=== PATIENT | female | born 1945 | race Caucasian/White ===

== ENCOUNTER 2020-03-15 17:39 | Emergency (ER) | payer MEDICARE, BC, SELFPAY ==
[2020-03-15 17:59] VITALS: BP 146/73; PULSE 102; RESP 16; TEMP 36.9; O2SAT 97; BMI 25.7
--- NOTE | 2020-03-15 18:24 | XR_ITS ---
WS: [id number] PORTABLE CHEST HISTORY: fever COMPARISON: 07/10/2019 Trab[place]ulae elevated LEFT hemidiaphragm causing atelectasis at the LEFT lung base. No progression. RIG HT lung is clear. No pleural effusion or pneumothorax. Cardiac size: Cardiac silhouette is obscured by the elevated LEFT hemidiaphragm. Mediastinum/Aorta: Mild atherosclerosis aorta. No osseous abnormality seen. XR/XR chest 1V portable [id number] IMPRESSION: Stable chest. No acute cardiopulmonary disease.
[2020-03-15 18:44] LABS: Add Urine Microscopic? YES; Bilirubin Urine 1+ (NEGATIVE); Blood Urine Neg (Negative); Glucose Urine UA Norm (Normal); Ketones Urine Negative (Negative); Leukocyte Esterase Urine Negative (Negative); Nitrate Urine Negative (Negative); Protein Urine Neg (Negative); Urine Appearance SL Hazy (CLEAR); Urine Color Yellow (Yellow); Urobilinogen Urine Norm (Negative); pH Urine 5 (5-7)
[2020-03-15 18:48] LABS: Lactate (Lactic Acid level) 1.2 mmol/L (0.5-2.2)
[2020-03-15 18:49] LABS: Alanine Aminotransferase 20 U/L (0-33); Albumin Level 3.7 g/dL (3.5-5.2); Alkaline Phosphatase 94 IU/L (35-105); Anion Gap 18.3 (5-19); Aspartate Amino Transferase 27 U/L (0-32); Bacteria Urine 1+; Blood Urea Nitrogen 16 mg/dL (8-23); C Reactive Protein 49.1 mg/L (0.0-4.9); Calcium 9.3 mg/dL (8.5-10.5); Carbon Dioxide 23 mmol/L (22-29); Chloride 96 mmol/L (98-107); Creatine Phosphokinase 96 U/L (26-192); Globulin 2.8 g/dL (1.3-4.6); Glucose 123 mg/dL (65-115); Mucus Urine 1+; Osmolality Calculated 274 mOsm/kg (285-295); Potassium 4.3 mmol/L (3.5-5.1); Sodium 133 mmol/L (136-145); Total Bilirubin 0.4 mg/dL (0.15-1.2); Total Protein 6.5 g/dL (6.6-8.7); WBC Urine 0-4 /hpf (0-5)
[2020-03-15 18:50] LABS: Add Urine Culture? No; Squamous Epithelial Cell Urine 0-4 (0-5)
[2020-03-15 19:15] VITALS: BP 134/74; PULSE 103; RESP 16; O2SAT 97
[2020-03-15 19:17] LABS: Basophils % 0.9 %; Eosinophils # 0.3 10^3/uL (0.0-0.8); Eosinophils % 6.3 %; Hematocrit 34.2 % (37.0-47.0); Hemoglobin 11.2 g/dL (11.5-15.3); Lymphocytes # 0.6 10^3/uL (0.8-4.8); Lymphocytes % 12.3 %; Mean Corpuscular HGB Conc 32.7 g/dL (30.0-36.0); Mean Corpuscular Hemoglobin 31.5 pg (28.0-34.0); Mean Corpuscular Volume 96.3 fL (81-99); Mean Platelet Volume 10.2 fL (7.4-10.4); Monocytes # 0.4 10^3/uL (0.2-0.9); Monocytes % 8.1 %; Neutrophils # 3.2 10^3/uL (1.8-7.7); Nucleated Red Blood Cells % 0 %; Platelet Count 193 10^3/cmm (130-400); Red Blood Count 3.55 10^6/uL (4.1-5.3); Red Cell Distribution Width 12.7 % (12.1-15.1); White Blood Count 4.5 10^3/uL (4.0-10.0)
[2020-03-15] MEDS: sodium chloride 0.9% 1,000 ML 999 ML IV (19:20)
--- NOTE | 2020-03-15 20:07 | W.ED.FEMALGU ---
HPI - Female Genitourinary General: Chief complaint: Urogenital-Female Stated complaint: poss sepsis per pcp Time Seen by Provider: 03/15/20 18:07 History of Present Illness: HPI Narrative: 74-year-old female presenting with continued fever. She had been treated on Monday for a urinary tract infection by her doctor. She says that she had been having dysuria and frequency with some back pain and belly pain. Those symptoms are essentially resolved, but continues to have chills, a fluttery feeling in her chest, and joint aches and pains. MD elicited complaint: dysuria and UTI Onset (ago): day(s) Location of symptoms: low back Severity: moderate Female Urogenital Radiation: Non-Radiating Quality of pain: burning Consistency: intermittent Vaginal discharge: none Vaginal bleeding: none Urinary symptoms: Dysuria Relieving factors: urination Associated symptoms: Reports fevers/chills, nausea and weakness (Generalized); Deny short of breath, headache(s) or rash Review of Systems Const: Reports: fever(s) and chills Eyes: Denies: change in vision or blurry vision ENMT: Denies: swelling of lips/tongue, bleeding gums, change in hearing or sinus pain Card: Reports: swelling of feet/ankles; Denies: chest pain, irregular heart rhythm, dyspnea on exertion or orthopnea Resp: Denies: dyspnea, productive cough, non-productive cough or wheezing GI: Reports: nausea : Reports: dysuria and urinary frequency; Denies: urinary urgency or hematuria Musc: Denies: neck pain, back pain, joint redness or joint warmth Skin/Breast: Denies: rash, pruritus or erythema Neuro: Reports: dizziness; Denies: headache(s) or vertigo Psych: Denies: anxiety PFSH ED PFSH: Social History Smoking and tobacco status: never smoked Physical Exam Const: GENERAL APPEARANCE: well developed ORIENTATION/CONSCIOUSNESS: Yes oriented to person, Yes oriented to place and Yes oriented to time HENMT: COMMON NORMALS: normocephalic, external ears normal and Normal external nose present HEAD & SCALP: normocephalic; no scalp tenderness FACE & SINUS: normal facial exam NOSE: Normal external nose present and No nasal discharge present EXTERNAL EAR: Yes external ears normal MOUTH: tongue normal TEETH & GINGIVA: no abnormal tooth and associated gingiva Eye: COMMON NORMALS: Equal, round and reactive pupils present, EOMs intact bilaterally and conjunctivae normal EYELID: eyelids normal CONJUNCTIVA: Yes conjunctivae normal PUPIL: Yes Equal, round and reactive pupils present Neck/C-Spine: GENERAL: No tracheal deviation Chest: COMMONS NORMALS: normal inspection of the chest CHEST: No tenderness Resp: COMMON NORMALS: clear to auscultation bilaterally EFFORT & INSPECTION: No tachypneic, No respiratory distress, No retractions, No uses accessory muscles and No tracheal deviation AUSCULTATION: clear to auscultation bilaterally, no rhonchi, no wheezes and lung sounds not diminished Cardio: COMMON NORMALS: regular rate and regular rhythm RATE: regular rate RHYTHM: regular rhythm HEART SOUNDS: no murmurs PERIPHERAL PULSES: radial pulses present GI: INSPECTION: No abdominal distension AUSCULTATION: No Hyperactive bowel sounds present and No Hypoactive bowel sounds present PALPATION: No Guarding due to palpation present (GI) and No Rigid due to palpation PERCUSSION: no dullness to percussion and no tympanic to percussion Neuro: SENSORIUM/ORIENTATION: Yes oriented to person, Yes oriented to place and Yes oriented to time Psych: COMMON NORMALS: mental status grossly normal Skin: COMMON NORMALS: no rashes or lesions noted GENERAL SKIN EXAM: no rashes or lesions noted Course Vital Signs: Vital signs: Vital Signs Temperature 98.4 F 03/15/20 17:59 Pulse Rate 98 03/15/20 20:46 Respiratory Rate 18 03/15/20 20:46 Blood Pressure 103/69 03/15/20 20:46 Pulse Oximetry 99 03/15/20 20:46 MDM - Female [facility] Narrative: Medical decision making narrative: Patient presents with joint aches and pains, some swelling, and fever that continues despite several doses of antibiotics following treatment for a urinary tract infection. No diarrhea or vomiting. No belly pain. No cough. White blood cell count is 4.5. Hemoglobin is 11 2. Other laboratory is benign her urine appears to be clearing. Her chest x-ray is negative for infiltrate. She has no known exposure to coronavirus and does not have symptoms related to coronavirus Chronic her symptoms are mostly related to a partially treated/incomplete treatment of UTI. Going to give her 1 dose of Rocephin here, have her continue the Bactrim, and follow-up as an outpatient. She knows to return if she gets sicker. Lab Data: Labs: Lab Results 03/15/20 03/15/20 03/15/20 Range/Units 18:17 18:17 18:17 WBC (4.0-10.0) 10^3/ uL RBC (4.1-5.3) 10^6/u L Hgb (11.5-15.3) g/dL Hct (37.0-47.0) % MCV (81-99) fL MCH (28.0-34.0) pg MCHC (30.0-36.0) g/dL RDW (12.1-15.1) % Plt Count (130-400) 10^3/c mm MPV (7.4-10.4) fL Neut % (Auto) % Lymph % (Auto) % [place] % (Auto) % Eos % (Auto) % Baso % (Auto) % Neut # (Auto) (1.8-7.7) 10^3/u L Lymph # (Auto) (0.8-4.8) 10^3/u L [place] # (Auto) (0.2-0.9) 10^3/u L Eos # (Auto) (0.0-0.8) 10^3/u L Baso # (Auto) (0.0-0.1) 10^3/u L Nucleated RBC % (a uto) % Nucleated RBCs # /100WBC Sodium 133 L (136-145) mmol/L Potassium 4.3 (3.5-5.1) mmol/L Chloride 96 L (98-107) mmol/L Carbon Dioxide 23 (22-29) mmol/L Anion Gap 18.3 (5-19) BUN 16 (8-23) mg/dL Creatinine 0.8 (0.5-0.9) mg/dL Glucose 123 H (65-115) mg/dL Calculated Osmolal ity 274 L (285-295) mOsm/k g Lactate 1.2 (0.5-2.2) mmol/L Calcium 9.3 (8.5-10.5) mg/dL Total Bilirubin 0.4 (0.15-1.2) mg/dL AST 27 (0-32) U/L ALT 20 (0-33) U/L Alkaline Phosphata se 94 (35-105) IU/L Creatine Kinase 96 (26-192) U/L C-Reactive Protein 49.1 H (0.0-4.9) mg/L Total Protein 6.5 L (6.6-8.7) g/dL Albumin 3.7 (3.5-5.2) g/dL Globulin 2.8 (1.3-4.6) g/dL Urine Color Yellow (Yellow) Urine Appearance Sl hazy (CLEAR) Urine pH 5 (5-7) Ur Specific Gravit y 1.020 (1.005-1.030) Urine Protein Neg (Negative) Urine Glucose (UA) Norm (Normal) Urine Ketones Negative (Negative) Urine Blood Neg (Negative) Urine Nitrate Negative (Negative) Urine Bilirubin 1+ H (NEGATIVE) Urine Urobilinogen Norm (Negative) mg/dL Ur Leukocyte Alondra ase Negative (Negative) Urine RBC None (0-2) /hpf Urine WBC 0-4 H (0-5) /hpf Ur Squamous Epith Cells 0-4 H (0-5) Urine Bacteria 1+ H (NONE) Urine Mucus 1+ 06/21/20 Range/Units 19:10 WBC 4.5 (4.0-10.0) 10^3/ uL RBC 3.55 L (4.1-5.3) 10^6/u L Hgb 11.2 L (11.5-15.3) g/dL Hct 34.2 L (37.0-47.0) % MCV 96.3 (81-99) fL MCH 31.5 (28.0-34.0) pg MCHC 32.7 (30.0-36.0) g/dL RDW 12.7 (12.1-15.1) % Plt Count 193 (130-400) 10^3/c mm MPV 10.2 (7.4-10.4) fL Neut % (Auto) 72.0 % Lymph % (Auto) 12.3 % [place] % (Auto) 8.1 % Eos % (Auto) 6.3 % Baso % (Auto) 0.9 % Neut # (Auto) 3.2 (1.8-7.7) 10^3/u L Lymph # (Auto) 0.6 L (0.8-4.8) 10^3/u L [place] # (Auto) 0.4 (0.2-0.9) 10^3/u L Eos # (Auto) 0.3 (0.0-0.8) 10^3/u L Baso # (Auto) 0.0 (0.0-0.1) 10^3/u L Nucleated RBC % (a uto) 0 % Nucleated RBCs # 0.0 /100WBC Sodium (136-145) mmol/L Potassium (3.5-5.1) mmol/L Chloride (98-107) mmol/L Carbon Dioxide (22-29) mmol/L Anion Gap (5-19) BUN (8-23) mg/dL Creatinine (0.5-0.9) mg/dL Glucose (65-115) mg/dL Calculated Osmolal ity (285-295) mOsm/k g Lactate (0.5-2.2) mmol/L Calcium (8.5-10.5) mg/dL Total Bilirubin (0.15-1.2) mg/dL AST (0-32) U/L ALT (0-33) U/L Alkaline Phosphata se (35-105) IU/L Creatine Kinase (26-192) U/L C-Reactive Protein (0.0-4.9) mg/L Total Protein (6.6-8.7) g/dL Albumin (3.5-5.2) g/dL Globulin (1.3-4.6) g/dL Urine Color (Yellow) Urine Appearance (CLEAR) Urine pH (5-7) Ur Specific Gravit y (1.005-1.030) Urine Protein (Negative) Urine Glucose (UA) (Normal) Urine Ketones (Negative) Urine Blood (Negative) Urine Nitrate (Negative) Urine Bilirubin (NEGATIVE) Urine Urobilinogen (Negative) mg/dL Ur Leukocyte Alondra ase (Negative) Urine RBC (0-2) /hpf Urine WBC (0-5) /hpf Ur Squamous Epith Cells (0-5) Urine Bacteria (NONE) Urine Mucus Discharge Plan Discharge Patient Disposition: Home, Self-Care Clinical Impression: Urinary tract infection Qualifiers: Urinary tract infection type: acute cystitis Hematuria presence: without hematuria Qualified Code(s): N30.00 - Acute cystitis without hematuria Condition: Stable Prescriptions: No Action atorvastatin 40 mg tablet 40 mg PO DAILY RF: 0 sulfamethoxazole-trimethoprim 800-160 mg tablet 1 tab PO DAILY RF: 0 triamcinolone acetonide 0.1 % cream See Rx Instructions .ROUTE .COMPLEX RF: 0 Synthroid 25 mcg tablet 25 mcg PO DAILY RF: 0 esomeprazole magnesium 40 mg capsule,delayed release(DR/EC) 40 mg PO DAILY RF: 0 lisinopril-hydrochlorothiazide 20-25 mg tablet 1 tab PO DAILY RF: 0 labetalol 100 mg tablet 100 mg PO BID RF: 0 ProAir HFA 90 mcg/actuation HFA aerosol inhaler See Rx Instructions .ROUTE .COMPLEX RF: 0 Discharge Orders: Discharge Order (Routine); Ordered 03/15/20 Ordered By: Rafa Mayen Referrals: Mary Garcia MD [Primary Care Provider] - Drew Siegel DO [Staff Physician] - 1-3 days Discharge Diet: Advance as tolerated Discharge Activity: Increase activity as tolerated Patient Instructions: Urinary Tract Infection in Women (ED) Activity Restrictions/Additional Instructions: Return for any worsening symptoms despite treatment. Continue your Bactrim for your urinary tract infection. Return for continued fevers despite 3 more doses, cough, shortness of breath, diarrhea, other concerning symptoms. Discharge Date/Time: 03/15/20 20:47 Coding Level of Care Code ED Copper Tapper for Lidia Adams Exam Comprehensive
[2020-03-15] MEDS: ketorolac 30 mg/mL INJ IVP (20:13)
[2020-03-15 20:14] VITALS: BP 128/67; PULSE 108; RESP 15; O2SAT 98
[2020-03-15] MEDS: cefTRIAXone 1,000 MG in sodium chloride 0.9% (plus) 50 ML 100 MG IV (20:26)
[2020-03-15 20:46] VITALS: BP 103/69; PULSE 98; RESP 18; O2SAT 99
== END 2020-03-15 20:47 | disposition home or self-care (01) ==
PROVIDERS: Emergency Provider Emergency Medicine; PCP Family Medicine
DX: N30.00 Acute cystitis without hematuria (principal)
CPT/HCPCS: 12345; 36415; 71045; 80053; 81001; 82550; 83605; 85025; 86140; 87040; 96365; 96375; 99283; J0696; J1885; J7030

== ENCOUNTER 2021-05-26 10:04 | Outpatient (CLI) | payer MEDICARE, BC, SELFPAY ==
--- NOTE | 2021-05-26 10:11 | XR_ITS ---
WS: [id number] PROCEDURE: XR chest 2V* [id number] CLINICAL INFORMATION: ELEVATED HEMIDIAPHRAGM, COPD,GERD, HYPERTENSION COMPARISON: March 15, 2020 FINDINGS: Heart: Normal cardiac silhouette. Markedly elevated left hemidiaphragm with volume loss left lung and atelectasis left lower lobe. This is unchanged from previous. Lungs: Lungs are otherwise well aerated. Moderate chronic emphysematous changes. No consolidation or pleural fluid. No acute pulmonary infiltrates. Bones: Moderate thoracic kyphosis with chronic anterior wedging in the mid thoracic spine. XR/XR chest 2V* [id number] IMPRESSION: Markedly elevated left hemidiaphragm with volume loss left lung unchanged from previous
== END 2021-05-26 10:05 | disposition home or self-care (01) ==
PROVIDERS: PCP Family Medicine; Visit Provider Family Medicine
DX: Q79.1 Other congenital malformations of diaphragm (principal); J44.9 Chronic obstructive pulmonary disease, unspecified; K21.9 Gastro-esophageal reflux disease without esophagitis; I10 Essential (primary) hypertension
CPT/HCPCS: 71046

== ENCOUNTER 2021-08-31 14:09 | Emergency (ER) | payer MEDICARE, BC, SELFPAY ==
[2021-08-31 14:34] VITALS: BP 115/79; PULSE 104; RESP 16; TEMP 36.7; O2SAT 98; BMI 25.8
[2021-08-31 15:13] LABS: Bilirubin Urine Neg (Negative); Blood Urine Neg (Negative); Glucose Urine UA Norm (Normal); Ketones Urine Negative (Negative); Nitrate Urine Negative (Negative); Protein Urine Neg (Negative); Urine Appearance SL Hazy (CLEAR); Urine Color Yellow (Yellow); pH Urine 5 (5-7)
[2021-08-31 15:14] LABS: Add Urine Microscopic? YES; Leukocyte Esterase Urine 2+ (Negative); Urobilinogen Urine Norm (Negative)
[2021-08-31 15:16] LABS: RBC Urine 0-4 /hpf (0-2)
[2021-08-31 15:17] LABS: Bacteria Urine 1+ /hpf; Transitional Epi Cells Urine 0-4 /hpf
[2021-08-31 15:18] LABS: Add Urine Culture? Yes
--- NOTE | 2021-08-31 16:24 | ED_ITS ---
Documented by User: Freddy Raymond DO 09/01/21 07:07 HPI - Abdominal Pain General: Chief Complaint: Abdominal Pain Stated Complaint: BOWEL OBSTRUCTION/SENT FROM DR SIEGEL Time Seen by Provider: 08/31/21 16:19 History of Present Illness: HPI narrative: 76-year-old female presents emergency room claiming abdominal pain cramping that she is at her last several days gotten worse over the last 24 hours. States that she has been dry heaving but not actually vomiting anything she had a loose stool yesterday no hematochezia or melena since then she not had any further bowel movements. She has a history of previous bowel obstructions and a history reported by the PCP of an elevated hemidiaphragm. She denies any dysuria urgency or frequency, no chest pain no different shortness of breath. MD elicited complaint: abdominal pain Pertinent past history: other (Previous bowel obstruction) Onset (ago): day(s) (3-4) Pain Consistency: intermittent Location: Diffuse Severity: moderate Quality: cramping Radiation: none Exacerbating factors: nothing Relieving factors: nothing Associated Symptoms: Reports anorexia, bloating, change in bowel habits, nausea and poor appetite; Denies belching, change in stool character, chills, coffee ground emesis, constipation, GI cramping, diarrhea, dyspepsia, dysuria, excessive flatus, fever(s), heartburn, hematochezia, hematuria, hematemesis, fecal incontinence, loose stools, melena, syncope and vomiting Review of Systems Const: Denies: fever(s) or chills ENMT: Denies: throat pain, ear or mastoid pain, nasal discharge or nasal congestion Card: Denies: syncope Resp: Denies: dyspnea, productive cough or non-productive cough GI: Reports: nausea, bloating and change in bowel habits; Denies: vomiting, hematemesis, coffee ground emesis, heartburn, diarrhea, constipation, GI cramping, belching, excessive flatus, fecal incontinence, change in stool character, hematochezia or melena : Denies: dysuria or hematuria Skin/Breast: Denies: rash or pruritus PFSH ED PFSH: Social History Smoking and tobacco status: never smoked Physical Exam Const: COMMON NORMALS: no acute distress GENERAL APPEARANCE: cooperative and comfortable ORIENTATION/CONSCIOUSNESS: Yes awake, Yes oriented to person, Yes oriented to place and Yes oriented to time HENMT: COMMON NORMALS: normocephalic, atraumatic and hearing grossly normal bilaterally HEAD & SCALP: normocephalic and atraumatic Neck/C-Spine: COMMON NORMALS: no JVD Resp: COMMON NORMALS: normal respiratory effort, No retractions, No use of accessory muscles and clear to auscultation bilaterally AUSCULTATION: clear to auscultation bilaterally Cardio: COMMON NORMALS: no JVD, regular rate, regular rhythm and No murmurs pr esent (Cardio) RATE: regular rate RHYTHM: regular rhythm GI: COMMON NORMALS: No hepatosplenomegaly present AUSCULTATION: Yes Hypoactive bowel sounds present PALPATION: Yes Tenderness to palpation present (GI) (Diffuse), No Guarding due to palpation present (GI) and Yes No hepatosplenomegaly present Extremity: COMMON NORMALS: normal to inspection, capillary refill normal, no clubbing, cyanosis or edema, no calf tenderness and no pedal edema Neuro: SENSORIUM/ORIENTATION: Yes oriented to person, Yes oriented to place and Yes oriented to time Skin: COMMON NORMALS: no rashes or lesions noted GENERAL SKIN EXAM: no rashes or lesions noted Course Vital Signs: Vital signs: Vital Signs Temperature 98.7 F 08/31/21 16:57 Pulse Rate 108 H 08/31/21 19:51 Respiratory Rate 16 08/31/21 19:51 Blood Pressure 133/89 08/31/21 19:51 Pulse Oximetry 97 08/31/21 19:51 MDM - Abdominal Pain MDM Narrative: Medical decision making narrative: Initially evaluated care turned over to Dr. Paul at change of shift we are awaiting imaging and lab work. Lab Data: Labs: Lab Results 08/31/21 08/31/21 08/31/21 14:36 16:48 16:48 WBC 10.7 10^3/uL H 10 ^3/uL (4.0-10.0) RBC 4.06 10^6/uL L 10 ^6/uL (4.1-5.3) Hgb 12.9 g/dL g/dL (11.5-15.3) Hct 38.9 % % (37.0-47.0) MCV 95.8 fl fl (81-99) MCH 31.8 pg pg (28.0-34.0) MCHC 33.2 g/dL g/dL (30.0-36.0) RDW 12.9 % % (12.1-15.1) Plt Count 189 10^3/cmm 10^3 /cmm (130-400) MPV 10.5 fL H fL (7.4-10.4) Neut % (Auto) 81.9 % % Lymph % (Auto) 8.9 % % Labette % (Auto) 8.0 % % Eos % (Auto) 0.7 % % Baso % (Auto) 0.3 % % Neut # (Auto) 8.73 10^3/uL H 10 ^3/uL (1.8-7.7) Lymph # (Auto) 1.0 10^3/uL 10^3/ uL (0.8-4.8) Labette # (Auto) 0.9 10^3/uL 10^3/ uL (0.2-0.9) Eos # (Auto) 0.1 10^3/uL 10^3/ uL (0.0-0.8) Baso # (Auto) 0.0 10^3/uL 10^3/ uL (0.0-0.1) Nucleated RBC % (a uto) 0 % % Nucleated RBCs # 0.0 /100WBC /100W BC Sodium 133 mmol/L L mmol /L (136-145) Potassium 3.7 mmol/L mmol/L (3.5-5.1) Chloride 96 mmol/L L mmol/ L (98-107) Carbon Dioxide 22 mmol/L mmol/L (22-29) Anion Gap 18.7 (5-19) BUN 10 mg/dL mg/dL (8-23) Creatinine 0.5 mg/dL mg/dL (0.5-0.9) GFR Calculation Not Reportable Glucose 101 mg/dL mg/dL (65-115) Calculated Osmolal ity 275 mOsm/kg L mOs m/kg (285-295) Lactic Acid Calcium 8.5 mg/dL mg/dL (8.5-10.5) Total Bilirubin 0.6 mg/dL mg/dL (0.15-1.2) AST 15 U/L U/L (0-32) ALT 12 U/L U/L (0-33) Alkaline Phosphata se 78 IU/L IU/L (35-105) Total Protein 6.0 g/dL L g/dL (6.6-8.7) Albumin 3.7 g/dL g/dL (3.5-5.2) Globulin 2.3 g/dL g/dL (1.3-4.6) Urine Color Yellow (Yellow) Urine Appearance Sl hazy (CLEAR) Urine pH 5 (5-7) Ur Specific Gravit y 1.020 (1.005-1.030) Urine Protein Neg (Negative) Urine Glucose (UA) Norm (Normal) Urine Ketones Negative (Negative) Urine Blood Neg (Negative) Urine Nitrate Negative (Negative) Urine Bilirubin Neg (Negative) Urine Urobilinogen Norm mg/dL mg/dL (Negative) Ur Leukocyte Alondra ase 2+ H (Negative) Urine RBC 0-4 /hpf H /hpf (0-2) Urine WBC 10-15 /hpf H /hpf (0-5) Ur Squamous Epith Cells 5-10 /hpf H /hpf (0-5) Ur Transition Epit h Cell 0-4 /hpf /hpf Amorphous Sediment Not Reportable Urine Bacteria 1+ /hpf H /hpf (NONE) 08/31/21 16:48 WBC RBC Hgb Hct MCV MCH MCHC RDW Plt Count MPV Neut % (Auto) Lymph % (Auto) Labette % (Auto) Eos % (Auto) Baso % (Auto) Neut # (Auto) Lymph # (Auto) Labette # (Auto) Eos # (Auto) Baso # (Auto) Nucleated RBC % (a uto) Nucleated RBCs # Sodium Potassium Chloride Carbon Dioxide Anion Gap BUN Creatinine GFR Calculation Glucose Calculated Osmolal ity Lactic Acid 1.1 mmol/L mmol/L (0.5-2.2) Calcium Total Bilirubin AST ALT Alkaline Phosphata se Total Protein Albumin Globulin Urine Color Urine Appearance Urine pH Ur Specific Gravit y Urine Protein Urine Glucose (UA) Urine Ketones Urine Blood Urine Nitrate Urine Bilirubin Urine Urobilinogen Ur Leukocyte Alondra ase Urine RBC Urine WBC Ur Squamous Epith Cells Ur Transition Epit h Cell Amorphous Sediment Urine Bacteria Discharge Plan Discharge Patient Disposition: Home Clinical Impression: Abdominal pain, Colitis Condition: Stable Prescriptions: New ondansetron 4 mg tablet,disintegrating 4 mg PO Q6H PRN (Reason: nausea and vomiting) Qty: 14 RF: 0 hydrocodone-acetaminophen 5-325 mg tablet 1 tab PO Q6H PRN (Reason: pain) Qty: 14 RF: 0 Cipro 500 mg tablet 500 mg PO BID Qty: 14 RF: 0 Flagyl 500 mg tablet 500 mg PO Q8H 7 Days Qty: 21 RF: 0 No Action atorvastatin 40 mg tablet 40 mg PO DAILY RF: 0 sulfamethoxazole-trimethoprim 800-160 mg tablet 1 tab PO DAILY RF: 0 triamcinolone acetonide 0.1 % cream See Rx Instructions .ROUTE .COMPLEX RF: 0 Synthroid 25 mcg tablet 25 mcg PO DAILY RF: 0 esomeprazole magnesium 40 mg capsule,delayed release(DR/EC) 40 mg PO DAILY RF: 0 lisinopril-hydrochlorothiazide 20-25 mg tablet 1 tab PO DAILY RF: 0 labetalol 100 mg tablet 100 mg PO BID RF: 0 ProAir HFA 90 mcg/actuation HFA aerosol inhaler See Rx Instructions .ROUTE .COMPLEX RF: 0 Discharge Orders: Discharge ED (Routine); Ordered 08/31/21 Ordered By: Juan Paul Referrals: Drew Siegel DO [Primary Care Provider] - 1-3 days Discharge Diet: Advance as tolerated Discharge Activity: Resume usual activity Patient Instructions: Abdominal Pain (ED), Colitis (ED), Opioid Safety Coding Level of Care Code ED Phlebotomist for Chg Fwd Exam Comprehensive Documented by User: Juan Paul MD 08/31/21 19:21 HPI - Abdominal Pain General: Chief Complaint: Abdominal Pain Stated Complaint: BOWEL OBSTRUCTION/SENT FROM DR SIEGEL Time Seen by Provider: 08/31/21 16:19 PFSH ED PFSH: Social History Smoking and tobacco status: never smoked Course Vital Signs: Vital signs: Vital Signs Temperature 98.7 F 08/31/21 16:57 Pulse Rate 108 H 08/31/21 19:51 Respiratory Rate 16 08/31/21 19:51 Blood Pressure 133/89 08/31/21 19:51 Pulse Oximetry 97 08/31/21 19:51 MDM - Abdominal Pain MDM Narrative: Medical decision making narrative: Patient presents here with abdominal pain likely from severe colitis her pain is improved here I evaluated discharge she has no tenderness at discharge white counts normal no signs of acute surgical issue we will start her on Cipro and Flagyl prescribed pain meds have her follow-up with her PCP in 5 to 7 days and return if worsening she understands agrees to plan. Lab Data: Labs: Lab Results 08/31/21 08/31/21 08/31/21 14:36 16:48 16:48 WBC 10.7 10^3/uL H 10 ^3/uL (4.0-10.0) RBC 4.06 10^6/uL L 10 ^6/uL (4.1-5.3) Hgb 12.9 g/dL g/dL (11.5-15.3) Hct 38.9 % % (37.0-47.0) MCV 95.8 fl fl (81-99) MCH 31.8 pg pg (28.0-34.0) MCHC 33.2 g/dL g/dL (30.0-36.0) RDW 12.9 % % (12.1-15.1) Plt Count 189 10^3/cmm 10^3 /cmm (130-400) MPV 10.5 fL H fL (7.4-10.4) Neut % (Auto) 81.9 % % Lymph % (Auto) 8.9 % % Labette % (Auto) 8.0 % % Eos % (Auto) 0.7 % % Baso % (Auto) 0.3 % % Neut # (Auto) 8.73 10^3/uL H 10 ^3/uL (1.8-7.7) Lymph # (Auto) 1.0 10^3/uL 10^3/ uL (0.8-4.8) Labette # (Auto) 0.9 10^3/uL 10^3/ uL (0.2-0.9) Eos # (Auto) 0.1 10^3/uL 10^3/ uL (0.0-0.8) Baso # (Auto) 0.0 10^3/uL 10^3/ uL (0.0-0.1) Nucleated RBC % (a uto) 0 % % Nucleated RBCs # 0.0 /100WBC /100W BC Sodium 133 mmol/L L mmol /L (136-145) Potassium 3.7 mmol/L mmol/L (3.5-5.1) Chloride 96 mmol/L L mmol/ L (98-107) Carbon Dioxide 22 mmol/L mmol/L (22-29) Anion Gap 18.7 (5-19) BUN 10 mg/dL mg/dL (8-23) Creatinine 0.5 mg/dL mg/dL (0.5-0.9) GFR Calculation Not Reportable Glucose 101 mg/dL mg/dL (65-115) Calculated Osmolal ity 275 mOsm/kg L mOs m/kg (285-295) Lactic Acid Calcium 8.5 mg/dL mg/dL (8.5-10.5) Total Bilirubin 0.6 mg/dL mg/dL (0.15-1.2) AST 15 U/L U/L (0-32) ALT 12 U/L U/L (0-33) Alkaline Phosphata se 78 IU/L IU/L (35-105) Total Protein 6.0 g/dL L g/dL (6.6-8.7) Albumin 3.7 g/dL g/dL (3.5-5.2) Globulin 2.3 g/dL g/dL (1.3-4.6) Urine Color Yellow (Yellow) Urine Appearance Sl hazy (CLEAR) Urine pH 5 (5-7) Ur Specific Gravit y 1.020 (1.005-1.030) Urine Protein Neg (Negative) Urine Glucose (UA) Norm (Normal) Urine Ketones Negative (Negative) Urine Blood Neg (Negative) Urine Nitrate Negative (Negative) Urine Bilirubin Neg (Negative) Urine Urobilinogen Norm mg/dL mg/dL (Negative) Ur Leukocyte Alondra ase 2+ H (Negative) Urine RBC 0-4 /hpf H /hpf (0-2) Urine WBC 10-15 /hpf H /hpf (0-5) Ur Squamous Epith Cells 5-10 /hpf H /hpf (0-5) Ur Transition Epit h Cell 0-4 /hpf /hpf Amorphous Sediment Not Reportable Urine Bacteria 1+ /hpf H /hpf (NONE) 08/31/21 16:48 WBC RBC Hgb Hct MCV MCH MCHC RDW Plt Count MPV Neut % (Auto) Lymph % (Auto) Labette % (Auto) Eos % (Auto) Baso % (Auto) Neut # (Auto) Lymph # (Auto) Labette # (Auto) Eos # (Auto) Baso # (Auto) Nucleated RBC % (a uto) Nucleated RBCs # Sodium Potassium Chloride Carbon Dioxide Anion Gap BUN Creatinine GFR Calculation Glucose Calculated Osmolal ity Lactic Acid 1.1 mmol/L mmol/L (0.5-2.2) Calcium Total Bilirubin AST ALT Alkaline Phosphata se Total Protein Albumin Globulin Urine Color Urine Appearance Urine pH Ur Specific Gravit y Urine Protein Urine Glucose (UA) Urine Ketones Urine Blood Urine Nitrate Urine Bilirubin Urine Urobilinogen Ur Leukocyte Alondra ase Urine RBC Urine WBC Ur Squamous Epith Cells Ur Transition Epit h Cell Amorphous Sediment Urine Bacteria Imaging Data ^: CT Abd/Pel: Attestation: I personally reviewed and interpreted this imaging study as follows: Radiologist's impression: [id number] [address] [address] Scan Report Signed Patient: Nelda Joyner Unit #: [id number] : 1945 Age/Sex: 76 / F ADM Date: 08/31/21 Loc: ER Room/Bed: Attending Dr: Ordering Provider/Ordering MD: Freddy Raymond DO Date of Service: 08/31/21 Procedure(s): CT abdomen pelvis w con* [id number] Accession Number(s): [id number] Report Number: [id number] PROCEDURE INFORMATION: Exam: CT Abdomen And Pelvis With Contrast Exam date and time: 08/31/2021 4:22 PM Age: 76 years old Clinical indication: Abdominal pain; Prior surgery; Surgery type: Hernia, bladder sling, hyst; Additional info: Abd pain TECHNIQUE: Imaging protocol: Computed tomography of the abdomen and pelvis with contrast. Radiation optimization: All CT scans at this facility use at least one of these dose optimization techniques: automated exposure control; mA and/or kV adjustment per patient size (includes targeted exams where dose is matched to clinical indication); or iterative reconstruction. Contrast material: OMNI 300; Contrast volume: 95 ml; Contrast route: INTRAVENOUS (IV); COMPARISON: CT Chest/Abdomen/Pelvis w IV* 02/01/2018 12:03 PM RADIATION DOSE METRICS: Total DLP (mGy-cm): 1374.47 FINDINGS: Diaphragm: There is marked eventration of the left hemidiaphragm is seen on previous examinations. Liver: Benign-appearing calcified lesion right lobe of the liver not significantly changed from 02/01/2018. Focal hypodensities seen adjacent to the falciform ligament which may represent some focal fatty change. Gallbladder and bile ducts: The gallbladder is normal. Pancreas: The pancreas is normal. Spleen: The spleen is normal. Adrenal glands: The adrenal glands are normal. Kidneys and ureters: 6 mm benign simple cyst upper pole left kidney not significantly changed. The right kidney is normal. There is no evidence of hydronephrosis. There is no evidence of renal or ureteral calcifications. Stomach and bowel: There is severe mucosal thickening and edema involving the right colon from the level of the cecum through the mid transverse colon. This may represent some nonspecific colitis. Appendix: Appendix is mildly prominent measuring 8 mm in diameter of uncertain significance. Intraperitoneal space: There is a small amount of free intraperitoneal fluid present. Vasculature: The aorta demonstrates mild atherosclerotic calcification. There is no evidence of an abdominal aortic aneurysm. Lymph nodes: There is no evidence of lymphadenopathy. Urinary bladder: Unremarkable as visualized. Reproductive: There has been a hysterectomy. Bones/joints: There is accentuated lumbar lordosis. The lumbar spine demonstrates mild degenerative changes at multiple levels. Soft tissues: There is 2 cm sized fluid density collection in the left groin which may represent some ascites fluid in the small hernia sac. CT/CT abdomen pelvis w con* [id number] IMPRESSION: 1. Severe colitis involving the right hemicolon. 2. 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 4. Other non urgent findings as described above. Dictated By: Jose Vigil Signed By: Jose Vigil Signed Date/Time: 08/31/211855 DD/ 162 Discharge Plan Discharge Patient Disposition: Home Clinical Impression: Abdominal pain, Colitis Condition: Stable Prescriptions: New ondansetron 4 mg tablet,disintegrating 4 mg PO Q6H PRN (Reason: nausea and vomiting) Qty: 14 RF: 0 hydrocodone-acetaminophen 5-325 mg tablet 1 tab PO Q6H PRN (Reason: pain) Qty: 14 RF: 0 Cipro 500 mg tablet 500 mg PO BID Qty: 14 RF: 0 Flagyl 500 mg tablet 500 mg PO Q8H 7 Days Qty: 21 RF: 0 No Action atorvastatin 40 mg tablet 40 mg PO DAILY RF: 0 sulfamethoxazole-trimethoprim 800-160 mg tablet 1 tab PO DAILY RF: 0 triamcinolone acetonide 0.1 % cream See Rx Instructions .ROUTE .COMPLEX RF: 0 Synthroid 25 mcg tablet 25 mcg PO DAILY RF: 0 esomeprazole magnesium 40 mg capsule,delayed release(DR/EC) 40 mg PO DAILY RF: 0 lisinopril-hydrochlorothiazide 20-25 mg tablet 1 tab PO DAILY RF: 0 labetalol 100 mg tablet 100 mg PO BID RF: 0 ProAir HFA 90 mcg/actuation HFA aerosol inhaler See Rx Instructions .ROUTE .COMPLEX RF: 0 Discharge Orders: Discharge ED (Routine); Ordered 08/31/21 Ordered By: Juan Paul Referrals: Drew Siegel DO [Primary Care Provider] - 1-3 days Discharge Diet: Advance as tolerated Discharge Activity: Resume usual activity Patient Instructions: Abdominal Pain (ED), Colitis (ED), Opioid Safety Coding Level of Care Code ED Phlebotomist for Neelg Fwd Exam Comprehensive
[2021-08-31 16:57] VITALS: BP 127/82; PULSE 102; RESP 16; TEMP 37.1; O2SAT 97
[2021-08-31 17:10] LABS: Basophils % 0.3 %; Eosinophils # 0.1 10^3/uL (0.0-0.8); Eosinophils % 0.7 %; Hematocrit 38.9 % (37.0-47.0); Hemoglobin 12.9 g/dL (11.5-15.3); Lymphocytes % 8.9 %; Mean Corpuscular HGB Conc 33.2 g/dL (30.0-36.0); Mean Corpuscular Hemoglobin 31.8 pg (28.0-34.0); Mean Corpuscular Volume 95.8 fl (81-99); Mean Platelet Volume 10.5 fL (7.4-10.4); Monocytes # 0.9 10^3/uL (0.2-0.9); Neutrophils # 8.73 10^3/uL (1.8-7.7); Neutrophils % 81.9 %; Nucleated Red Blood Cells % 0 %; Platelet Count 189 10^3/cmm (130-400); Red Blood Count 4.06 10^6/uL (4.1-5.3); Red Cell Distribution Width 12.9 % (12.1-15.1); White Blood Count 10.7 10^3/uL (4.0-10.0)
[2021-08-31 17:33] LABS: Alanine Aminotransferase 12 U/L (0-33); Albumin Level 3.7 g/dL (3.5-5.2); Alkaline Phosphatase 78 IU/L (35-105); Anion Gap 18.7 (5-19); Aspartate Amino Transferase 15 U/L (0-32); Blood Urea Nitrogen 10 mg/dL (8-23); Calcium 8.5 mg/dL (8.5-10.5); Carbon Dioxide 22 mmol/L (22-29); Chloride 96 mmol/L (98-107); Globulin 2.3 g/dL (1.3-4.6); Glucose 101 mg/dL (65-115); Osmolality Calculated 275 mOsm/kg (285-295); Potassium 3.7 mmol/L (3.5-5.1); Sodium 133 mmol/L (136-145); Total Bilirubin 0.6 mg/dL (0.15-1.2)
[2021-08-31 17:34] LABS: Lactic Sepsis W/Reflex 1.1 mmol/L (0.5-2.2)
[2021-08-31] MEDS: iohexol 300 mg/mL 100 mL Btl IV (18:05)
[2021-08-31 19:51] VITALS: BP 133/89; PULSE 108; RESP 16; O2SAT 97
[2021-08-31] MEDS: ciprofloxacin 500 mg Tablet PO (19:51)
[2021-08-31] MEDS: metroNIDAZOLE 500 MG Tablet PO (19:51)
== END 2021-08-31 19:52 | disposition home or self-care (01) ==
PROVIDERS: Physician Assistant; Emergency Provider Emergency Medicine; PCP Family Medicine
DX: K52.9 Noninfective gastroenteritis and colitis, unspecified (principal)
CPT/HCPCS: 74177; 80053; 81001; 83605; 85025; 87086; 99283; Q9967

== ENCOUNTER 2023-02-24 11:42 | Outpatient (CLI) | payer MEDICARE, BC, SELFPAY ==
--- NOTE | 2023-02-24 11:58 | XR_ITS ---
WS: [id number] Exam: XR chest 2V* [id number] Date/Time of Exam: 02/24/2023 12:16 PM Reason For Exam: post diaphram surgery Comparison 05/26/2021. There is atelectasis in the left lower lobe with left basal pleural effusion. The lungs are otherwise clear. There is eventration of the right diaphragm. Hiatal hernia noted. Cardiac enlargement. No pne umothorax. Dextroscoliosis of the thoracic and lumbar spine. Markedly exaggerated thoracic kyphosis. XR/XR chest 2V* [id number] IMPRESSION: 1. Left lower lobe atelectasis and left basal pleural effusion noted. 2. Cardiac enlargement. Hiatal hernia.
== END 2023-02-24 11:43 | disposition home or self-care (01) ==
PROVIDERS: PCP Family Medicine; Visit Provider Family Medicine
DX: J98.6 Disorders of diaphragm (principal); Z98.890 Other specified postprocedural states; J98.11 Atelectasis; J90 Pleural effusion, not elsewhere classified; I51.7 Cardiomegaly; K44.9 Diaphragmatic hernia without obstruction or gangrene
CPT/HCPCS: 71046

== ENCOUNTER → 2023-02-27 09:01 | Outpatient (BNVA) | payer MEDICARE, BC, SELFPAY | PROVIDERS: PCP Family Medicine; Visit Provider Family Medicine | DX: S43.014A Anterior dislocation of right humerus, initial encounter (principal); W19.XXXA Unspecified fall, initial encounter | CPT/HCPCS: 73030 ==

== ENCOUNTER → 2023-03-03 11:14 | Outpatient (BNVA) | payer MEDICARE, BC, SELFPAY | PROVIDERS: PCP Family Medicine; Referring Provider Family Medicine; Visit Provider Orthopaedic Surgery | DX: M24.411 Recurrent dislocation, right shoulder (principal) | CPT/HCPCS: 99203 ==

== ENCOUNTER → 2023-08-22 10:36 | Outpatient (BNVA) | payer MEDICARE, BC, SELFPAY | PROVIDERS: PCP Family Medicine; Visit Provider Family Medicine | DX: M79.606 Pain in leg, unspecified (principal); E78.5 Hyperlipidemia, unspecified; J98.6 Disorders of diaphragm; E03.9 Hypothyroidism, unspecified; I10 Essential (primary) hypertension; Z13.6 Encounter for screening for cardiovascular disorders | CPT/HCPCS: 80053; 80061; 84443; 85025 ==

== ENCOUNTER 2023-08-23 10:30 | Outpatient (CLI) | payer MEDICARE, BC, SELFPAY ==
--- NOTE | 2023-08-23 10:45 | US_ITS ---
WS: [id number] ULTRASOUND SOFT TISSUE AREA OF CONCERN INDICATION: RIGHT leg lump TECHNIQUE: Ultrasound area of concern FINDINGS: Ultrasound RIGHT leg anteriorly in the area of concern. Subcutaneous edema seen in the area of interest. No evidence of drainable abscess or fluid collection. No cystic or solid mass. No other suspicious findings. IMPRESSION: See above
== END 2023-08-23 10:31 | disposition home or self-care (01) ==
LOC: RAD 10:30
PROVIDERS: PCP Family Medicine; Visit Provider Family Medicine
DX: M79.604 Pain in right leg (principal); R22.41 Localized swelling, mass and lump, right lower limb
CPT/HCPCS: 76882

== ENCOUNTER → 2023-10-02 12:59 | Outpatient (BNVA) | payer MEDICARE, BC, SELFPAY | PROVIDERS: PCP Family Medicine; Visit Provider Family Medicine | DX: D69.6 Thrombocytopenia, unspecified (principal) | CPT/HCPCS: 85025 ==

== ENCOUNTER → 2024-04-22 10:45 | Outpatient (BNVA) | payer MEDICARE, BC, SELFPAY | PROVIDERS: PCP Family Medicine; Visit Provider Family Medicine | DX: N39.0 Urinary tract infection, site not specified (principal) | CPT/HCPCS: 81000; 87086 ==

== ENCOUNTER → 2024-04-29 08:56 | Outpatient (BNVA) | payer MEDICARE, BC, SELFPAY | PROVIDERS: PCP Family Medicine; Visit Provider Family Medicine | DX: N39.0 Urinary tract infection, site not specified (principal) | CPT/HCPCS: 81000; 87086 ==

== ENCOUNTER → 2024-08-21 12:47 | Outpatient (BNVA) | payer MEDICARE, BC, SELFPAY | PROVIDERS: PCP Family Medicine; Visit Provider Family Medicine | DX: R39.9 Unspecified symptoms and signs involving the genitourinary system (principal); N39.0 Urinary tract infection, site not specified | CPT/HCPCS: 81000; 87077; 87086; 87184 ==

== ENCOUNTER → 2024-12-17 13:28 | Outpatient (BNVA) | payer MEDICARE, BC, SELFPAY | PROVIDERS: PCP Family Medicine; Visit Provider Family Medicine | DX: E03.9 Hypothyroidism, unspecified (principal); I10 Essential (primary) hypertension; E78.5 Hyperlipidemia, unspecified; D69.6 Thrombocytopenia, unspecified | CPT/HCPCS: 80053; 80061; 82306; 82607; 84443; 85025 ==

== ENCOUNTER → 2025-01-07 11:28 | Outpatient (BNVA) | payer MEDICARE, BC, SELFPAY | PROVIDERS: PCP Family Medicine; Visit Provider Family Medicine | DX: D69.6 Thrombocytopenia, unspecified (principal) | CPT/HCPCS: 85007; 85027 ==

== ENCOUNTER → 2025-02-10 10:06 | Outpatient (BNVA) | payer MEDICARE, BC, SELFPAY | PROVIDERS: PCP Family Medicine; Visit Provider Family Medicine | DX: D64.9 Anemia, unspecified (principal) | CPT/HCPCS: 82728; 83540; 85025 ==

== ENCOUNTER 2025-02-18 14:37 | Outpatient (CLI) | payer MEDICARE, BC, SELFPAY ==
--- NOTE | 2025-02-18 14:42 | XR_ITS ---
WS: [id number] Right knee, 3 views, 02/18/2025 Clinical Data: M17.10 - Unilateral primary osteoarthritis, unspecified knee Comparison: Right knee, 05/15/2019 Findings: No fractures or dislocations are seen. There is narrowing of the lateral joint compartment with subchondral cysts of the lateral tibial plateau and probably of the lateral femoral condyle. There is minimal irregularity of the posterior right patella. The soft tissues are unremarkable. XR/XR knee RT 3V* [id number] Impression: Moderate osteoarthritis of the lateral joint compartment of the right knee
== END 2025-02-18 14:38 | disposition home or self-care (01) ==
LOC: RAD 14:41
PROVIDERS: PCP Family Medicine; Visit Provider Family Medicine
DX: M17.11 Unilateral primary osteoarthritis, right knee (principal); M85.661 Other cyst of bone, right lower leg
CPT/HCPCS: 73562